=== PATIENT | female | born 1965 | race Caucasian/White ===

== ENCOUNTER 2018-01-05 12:26 | Emergency (ER) | payer OTHER ==
[~2018-01-05] VITALS: Ht 170.2 cm; Wt 64.4 kg
[~2018-01-05 12:26] MED LIST: NAPR500 PO; TOVI8TAB PO; VENL75 PO; ZOFR4TAB3 PO
[2018-01-05 12:28] VITALS: BP 153/81; PULSE 91; RESP 18; TEMP 97.4; O2SAT 100
[2018-01-05] MEDS ORDERED: TOVI8TAB PO (13:59)
[2018-01-05] MEDS ORDERED: VENL75TA PO (13:59)
[2018-01-05] MEDS ORDERED: SODIUM CHLOR 0.9% 1000 ML INJ 1,000 ML IV SCH (14:08)
[2018-01-05] MEDS ORDERED: FAMOTIDINE 20 MG/2 ML VIAL IV PUSH ONE (14:15)
[2018-01-05] MEDS ORDERED: ONDANSETRON HCL 4 MG/2 ML VIAL IVP ONE (14:15)
[2018-01-05] MEDS ORDERED: SODIUM CHLORIDE 0.9% FLUSH 10 ML FLUSH IV FLUSH PRN (14:15)
--- NOTE | 2018-01-05 14:21 | PD ---
HPI Chief Complaint: GI Complaint Time Seen by Provider: 14:01 Travel History International Travel<30 days: No Contact w/Intl Traveler<30days: No Traveled to known affect area: No History of Present Illness HPI 52-year-old female complains of nausea vomiting and abdominal bloating. Patient states the symptoms started 2 days ago. Patient states that she is has a lot of gas feeling the abdomen for the past 2 days. Patient denies any headache. Patient states that she has nasal congestion for the past several days. Patient denies any coughing. Patient denies any fever chills. Patient denies abdominal pain. Patient denies any dysuria or frequency. Patient denies any vaginal discharge or bleeding. Patient status post cholecystectomy in the past. PFSH Past Medical History Depression: Yes Diminished Hearing: No Genitourinary: Yes Immunizations Current: Yes Tetanus Vaccination: Unknown Influenza Vaccination: No ?: Not LMP: YEARS AGO Past Surgical History Cholecystectomy: Yes Social History Alcohol Use: Yes ([facility]) Tobacco Use: Yes (1/2) Substance Use: No Allergies-Medications (Allergen,Severity, Reaction): Coded Allergies: Sulfa (Sulfonamide Antibiotics) (Unverified Allergy, Severe, RASH, 01/05/18 ) codeine (Unverified Adverse Reaction, Severe, Nausea/Vomiting, 01/05/18) Reported Meds & Prescriptions Reported Meds & Active Scripts Active Reported Effexor (Venlafaxine HCl) 75 Mg Tab 75 Mg PO DAILY Toviaz ER (Fesoterodine Fumarate) 8 Mg Sherry 8 Mg PO DAILY Review of Systems General / Constitutional: No: Fever Eyes: No: Visual changes HENT: No: Headaches Cardiovascular: No: Chest Pain or Discomfort Respiratory: No: Shortness of Breath Gastrointestinal: Positive: Nausea, Vomiting, No: Abdominal Pain Genitourinary: No: Dysuria Musculoskeletal: No: Pain Skin: No Rash Neurologic: No: Weakness Psychiatric: No: Depression Endocrine: No: Polydipsia Hematologic/Lymphatic: No: Easy Bruising Physical Exam Narrative GENERAL: Well-nourished, well-developed patient. SKIN: Focused skin assessment warm/dry. HEAD: Normocephalic. EYES: No scleral icterus. No injection or drainage. NECK: Supple, trachea midline. No JVD or lymphadenopathy. CARDIOVASCULAR: Regular rate and rhythm without murmurs, gallops, or rubs. RESPIRATORY: Breath sounds equal bilaterally. No accessory muscle use. GASTROINTESTINAL: Abdomen soft, nondistended. Patient has mild diffuse tenderness over the abdomen. No rebound tenderness. No mass. MUSCULOSKELETAL: No cyanosis, or edema. BACK: Nontender without obvious deformity. No CVA tenderness. Neurologic exam normal. Data Data Last Documented VS Vital Signs Date Time Temp Pulse Resp B/P (MAP) Pulse Ox O2 Delivery O2 Flow Rate FiO2 01/05/18 15:56 88 20 143/72 (95) 98 Room Air 01/05/18 12:28 97.4 Orders Orders Complete Blood Count With Diff (01/05/18 14:08) Comprehensive Metabolic Panel (01/05/18 14:08) Lipase (01/05/18 14:08) Prothrombin Time / Inr (Pt) (01/05/18 14:08) Act Partial Throm Time (Ptt) (01/05/18 14:08) Urinalysis - C+S If Indicated (01/05/18 14:08) Ct Abd/Pel W Iv Contrast(Rout) (01/05/18 14:08) Iv Access Insert/Monitor (01/05/18 14:08) Ecg Monitoring (01/05/18 14:08) Oximetry (01/05/18 14:08) Ondansetron Inj (Zofran Inj) (01/05/18 14:15) Sodium Chlor 0.9% 1000 Ml Inj (Ns 1000 M (01/05/18 14:08) Sodium Chloride 0.9% Flush (Ns Flush) (01/05/18 14:15) Famotidine Inj (Pepcid Inj) (01/05/18 14:15) Metoclopramide Inj (Reglan Inj) (01/05/18 15:00) Diphenhydramine Inj (Benadryl Inj) (01/05/18 15:00) Iohexol 350 Inj (Omnipaque 350 Inj) (01/05/18 15:38) Labs Laboratory Tests Test 01/05/18 14:00 01/05/18 15:10 White Blood Count 13.6 TH/MM3 Red Blood Count 4.83 MIL/MM3 Hemoglobin 14.4 GM/DL Hematocrit 43.4 % Mean Corpuscular Volume 89.9 FL Mean Corpuscular Hemoglobin 29.7 PG Mean Corpuscular Hemoglobin Concent 33.1 % Red Cell Distribution Width 12.6 % Platelet Count 264 TH/MM3 Mean Platelet Volume 8.0 FL Neutrophils (%) (Auto) 80.6 % Lymphocytes (%) (Auto) 12.2 % Monocytes (%) (Auto) 6.5 % Eosinophils (%) (Auto) 0.3 % Basophils (%) (Auto) 0.4 % Neutrophils # (Auto) 10.9 TH/MM3 Lymphocytes # (Auto) 1.7 TH/MM3 Monocytes # (Auto) 0.9 TH/MM3 Eosinophils # (Auto) 0.0 TH/MM3 Basophils # (Auto) 0.1 TH/MM3 CBC Comment DIFF FINAL Differential Comment Prothrombin Time 10.8 SEC Prothromb Time International Ratio 1.1 RATIO Activated Partial Thromboplast Time 24.5 SEC Blood Urea Nitrogen 16 MG/DL Creatinine 0.71 MG/DL Random Glucose 105 MG/DL Total Protein 9.0 GM/DL Albumin 4.6 GM/DL Calcium Level 10.0 MG/DL Alkaline Phosphatase 90 U/L Aspartate Amino Transf (AST/SGOT) 15 U/L Alanine Aminotransferase (ALT/SGPT) 24 U/L Total Bilirubin 0.9 MG/DL Sodium Level 141 MEQ/L Potassium Level 3.6 MEQ/L Chloride Level 106 MEQ/L Carbon Dioxide Level 24.7 MEQ/L Anion Gap 10 MEQ/L Estimat Glomerular Filtration Rate 86 ML/MIN Lipase 107 U/L Urine Color YELLOW Urine Turbidity CLOUDY Urine pH 6.5 Urine Specific [place] 1.020 Urine Protein 100 mg/dL Urine Glucose (UA) NEG mg/dL Urine Ketones 80 OR GREATER mg/dL Urine Occult Blood TRACE Urine Nitrite NEG Urine Bilirubin NEG Urine Urobilinogen 0.2 MG/DL Urine Leukocyte Esterase TRACE Urine RBC 0-3 /hpf Urine WBC 0-2 /hpf Urine Squamous Epithelial Cells 0-5 /hpf Urine Bacteria RARE /hpf Urine Mucus MANY /lpf Microscopic Urinalysis Comment CULT NOT INDICATED MDM Medical Decision Making Medical Screen Exam Complete: Yes Emergency Medical Condition: Yes Interpretation(s) 1516 p.m. CBC WBC 13.6. 80 neutrophil. CMP within normal limits. [address] scan abdomen pelvis negative acute pathology. Differential Diagnosis Differential diagnosis including gastroenteritis, gastritis, PUD, pancreatitis, colitis, UTI, pyelonephritis, nephrolithiasis, bowel obstruction. Narrative Course 52-year-old female with nausea vomiting and abdominal cramping. Normal saline solution 1 L IV bolus. Zofran 4 mg IV. Pepcid 20 mg IV. Diagnosis Primary Impression: Gastroenteritis Patient Instructions: General Instructions Additional Instructions: Clear fluid today and advance diet as tolerated. Take medication as needed for nausea vomiting. Follow-up with personal physician. Return if persistent problem or worse. Med/Other Pt SpecificInfo: Prescription(s) given Scripts Promethazine (Phenergan) 25 Mg Tablet 25 MG PO Q6H Y for NAUSEA OR VOMITING, #10 TAB 0 Refills Prov: Osvaldo Hendrickson MD 01/05/18 Ondansetron Odt (Zofran Odt) 4 Mg Tab 4 MG SL Q6HR Y for Nausea/Vomiting, #10 TAB 0 Refills Prov: Osvaldo Hendrickson MD 01/05/18 Disposition: 01 DISCHARGE HOME Condition: Stable Osvaldo Hendrickson MD Jan 05, 2018 14:21
[2018-01-05 14:23] VITALS: O2SAT 98
[2018-01-05 14:24] VITALS: BP 141/87; PULSE 85; RESP 18; O2SAT 98
[2018-01-05 14:45] VITALS: BP 141/67; PULSE 87; RESP 18; O2SAT 98
[2018-01-05 14:47] LABS: AUTOMATED NEUTROPHIL # 10.9 TH/MM3 (1.8-7.7); BASOPHIL # 0.1 TH/MM3 (0-0.2); BASOPHIL % 0.4 % (0.0-2.0); EOSINOPHIL % 0.3 % (0.0-4.0); HEMATOCRIT 43.4 % (35.0-46.0); HEMOGLOBIN 14.4 GM/DL (11.6-15.3); LYMPH % 12.2 % (9.0-44.0); LYMPHOCYTE # 1.7 TH/MM3 (1.0-4.8); MEAN CELL VOLUME 89.9 FL (80.0-100.0); MEAN CORPUSCULAR HEMOGLOBIN 29.7 PG (27.0-34.0); MEAN CORPUSCULAR HGB CONC 33.1 % (32.0-36.0); MONO % 6.5 % (0.0-8.0); MONOCYTE # 0.9 TH/MM3 (0-0.9); NEUT % 80.6 % (16.0-70.0); PLATELET COUNT 264 TH/MM3 (150-450); RED BLOOD COUNT 4.83 MIL/MM3 (4.00-5.30); RED CELL DISTRIBUTION WIDTH 12.6 % (11.6-17.2); WHITE BLOOD COUNT 13.6 TH/MM3 (4.0-11.0)
[2018-01-05 15:00] LABS: CHLORIDE 106 MEQ/L (98-107); SODIUM (NA) 141 MEQ/L (136-145)
[2018-01-05] MEDS ORDERED: diphenhydrAMINE HCL 50 MG/ML VIAL IV PUSH ONE (15:00)
[2018-01-05] MEDS ORDERED: METOCLOPRAMIDE HCL 10 MG/2 ML VIAL IV PUSH ONE (15:00)
[2018-01-05 15:04] LABS: ALBUMIN 4.6 GM/DL (3.4-5.0); BICARBONATE 24.7 MEQ/L (21.0-32.0); BLOOD UREA NITROGEN 16 MG/DL (7-18); GLUCOSE,RANDOM 105 MG/DL (74-106); INTERNATIONAL NORMALIZED RATIO 1.1 RATIO; PROTHROMBIN TIME - PATIENT 10.8 SEC (9.8-11.6)
[2018-01-05 15:07] LABS: ALT (GPT) 24 U/L (10-53); AST (GOT) 15 U/L (15-37); CREATININE 0.71 MG/DL (0.50-1.00); GLOMERULAR FILTRATION RATE 86 ML/MIN (>89)
[2018-01-05 15:09] LABS: TOTAL BILIRUBIN ADULT 0.9 MG/DL (0.2-1.0)
[2018-01-05 15:10] LABS: ALKALINE PHOSPHATASE 90 U/L (45-117)
[2018-01-05] MEDS ORDERED: IOHEXOL 350 MG/ML 10 ML VIAL (for RAD DIAG) IVCONTRAST ONE (15:38)
[2018-01-05 15:40] LABS: BLOOD, URINE TRACE (NEG); GLUCOSE,URINE NEG (NEG); KETONE, URINE 80 OR GREATER mg/dL (NEG); NITRITE,URINE NEG (NEG); PH, URINE 6.5 (5.0-8.5); URINE COLOR YELLOW (YELLW/STRAW); URINE LEUKOCYTE ESTERASE TRACE (NEG)
[2018-01-05 15:44] LABS: BILIRUBIN, URINE NEG (NEG)
--- NOTE | 2018-01-05 15:47 | RADRPT ---
EXAM DATE/TIME: 01/05/2018 15:32 [facility] COMPARISON: No previous studies available for comparison. INDICATIONS : Nausea and vomiting with abdominal bloating since yesterday. IV CONTRAST: 90 cc Omnipaque 350 (iohexol) IV ORAL CONTRAST: No oral contrast ingested. RADIATION DOSE: 7.47 CTDIvol (mGy) MEDICAL HISTORY : None SURGICAL HISTORY : Cholecystectomy. ENCOUNTER: Initial ACUITY: 2 days PAIN SCALE: 6/10 LOCATION: pelvis abdomen TECHNIQUE: Volumetric scanning of the abdomen and pelvis was performed. Using automated exposure control and ad justment of the mA and/or kV according to patient size, radiation dose was kept as low as reasonably achievable to obtain optimal diagnostic quality images. DICOM format image data is available electro nically for review and comparison. FINDINGS: LOWER LUNGS: The visualized lower lungs are clear. LIVER: Homogeneous density without lesion. There is no dilation of the biliary tree. Status post cholecyste ctomy. There is mild hepatic steatosis. SPLEEN: Normal size without lesion. PANCREAS: Within normal limits. KIDNEYS: Normal in size and shape. There is no mass, stone or hydronephrosis. ADRENAL GLANDS: Within normal limits. VASCULAR: There is no aortic aneurysm. BOWEL/MESENTERY: No oral contrast was given limiting the sensitivity. The stomach, small bowel, and colon demonstrate no acute abnormality. There is no free intraperitoneal air or fluid. ABDOMINAL WALL: Within normal limits. RETROPERITONEUM: There is no lymphadenopathy. BLADDER: No wall thickening or mass. REPRODUCTIVE: Within normal limits. INGUINAL: There is no lymphadenopathy or hernia. MUSCULOSKELETAL: Within normal limits for patient age. CONCLUSION: 1. Unremarkable bowel gas pattern present. The study was performed without oral contrast. 2. Mild hepatic steatosis. 3. Status post cholecystectomy. Yordy Pacheco MD on January 05, 2018 at 15:42 Board Certified Radiologist. This report was verified electronically.
[2018-01-05 15:56] VITALS: BP 143/72; PULSE 88; RESP 20; O2SAT 98
[2018-01-05 15:56] LABS: BACTERIA, URINE RARE /hpf; MUCUS URINE MANY /lpf (OCC); RBC, URINE 0-3 /hpf (0-3); SQUAMOUS EPITHELIAL CELL URINE 0-5 /hpf (0-5); WBC, URINE 0-2 /hpf (0-5)
[2018-01-05] MEDS ORDERED: ZOFR4TAB3 SL (16:02)
[2018-01-05] MEDS ORDERED: PROM25TA10 PO (16:02)
== END 2018-01-05 16:07 | disposition home or self-care (01) ==
LOC: PHED 12:26
DX: K52.9 Noninfective gastroenteritis and colitis, unspecified (principal); F32.9 Major depressive disorder, single episode, unspecified; F17.200 Nicotine dependence, unspecified, uncomplicated
CPT/HCPCS: 74177; 80053; 81001; 83690; 85025; 85610; 85730; 96361; 96374; 96375; 99285; J1200; J2405; J2765; J7030; Q9967

== ENCOUNTER 2018-01-09 15:20 | Emergency (ER) | payer OTHER ==
[~2018-01-09] VITALS: Ht 170.2 cm; Wt 66.0 kg
[~2018-01-09 15:20] MED LIST changes: -NAPR500 PO; +PROM25TA10 PO; -VENL75 PO; +VENL75TA PO; -ZOFR4TAB3 PO; +ZOFR4TAB3 SL
[2018-01-09 15:24] VITALS: BP 124/82; PULSE 86; RESP 16; TEMP 97.3; O2SAT 100
[2018-01-09] MEDS ORDERED: SODIUM CHLOR 0.9% 1000 ML INJ 1,000 ML IV ONE (16:25)
[2018-01-09 16:28] VITALS: O2SAT 98
[2018-01-09] MEDS ORDERED: ONDANSETRON HCL 4 MG/2 ML VIAL IV PUSH ONE (16:30)
[2018-01-09] MEDS ORDERED: MECLIZINE HCL 25 MG TAB PO ONE (16:30)
[2018-01-09] MEDS ORDERED: SODIUM CHLORIDE 0.9% FLUSH 10 ML FLUSH IVF PRN (16:30)
[2018-01-09 16:39] LABS: BASOPHIL # 0.1 TH/MM3 (0-0.2); EOSINOPHIL # 0.3 TH/MM3 (0-0.4); EOSINOPHIL % 3.2 % (0.0-4.0); HEMATOCRIT 40.4 % (35.0-46.0); HEMOGLOBIN 13.6 GM/DL (11.6-15.3); LYMPH % 26.8 % (9.0-44.0); LYMPHOCYTE # 2.2 TH/MM3 (1.0-4.8); MEAN CELL VOLUME 91.2 FL (80.0-100.0); MEAN CORPUSCULAR HEMOGLOBIN 30.6 PG (27.0-34.0); MEAN CORPUSCULAR HGB CONC 33.6 % (32.0-36.0); MEAN PLATELET VOLUME 7.5 FL (7.0-11.0); MONO % 7.6 % (0.0-8.0); MONOCYTE # 0.6 TH/MM3 (0-0.9); NEUT % 61.4 % (16.0-70.0); PLATELET COUNT 273 TH/MM3 (150-450); RED BLOOD COUNT 4.43 MIL/MM3 (4.00-5.30); WHITE BLOOD COUNT 8.2 TH/MM3 (4.0-11.0)
--- NOTE | 2018-01-09 16:47 | PD ---
HPI Chief Complaint: Dizziness Time Seen by Provider: 16:17 Travel History International Travel<30 days: No Contact w/Intl Traveler<30days: No Traveled to known affect area: No History of Present Illness HPI 52-year-old female complains of a stated dizziness. She was seen here about 4 days prior and diagnosed with gastroenteritis. She reports vomiting frequently since. No diarrhea. No chest pain or shortness of breath. Patient describes the dizziness is difficult to clarify in terms of lightheadedness versus vertiginous. No complaints of tinnitus, otalgia or otorrhea. Following admission last time the patient was prescribed Zofran and Phenergan. The patient filled the Zofran prescription but not the Phenergan prescription. No diarrhea. No similar prior episodes. PFSH Past Medical History Depression: Yes Diminished Hearing: No Genitourinary: Yes Immunizations Current: Yes ?: Not Past Surgical History Cholecystectomy: Yes Social History Alcohol Use: Yes (OCC) Tobacco Use: Yes (1/2) Substance Use: No Allergies-Medications (Allergen,Severity, Reaction): Coded Allergies: Sulfa (Sulfonamide Antibiotics) (Unverified Allergy, Severe, RASH, 01/09/18 ) codeine (Unverified Adverse Reaction, Severe, Nausea/Vomiting, 01/09/18) Reported Meds & Prescriptions Reported Meds & Active Scripts Active Meclizine (Meclizine HCl) 25 Mg Tab 25 Mg PO TID PRN 30 Days Ativan (Lorazepam) 0.5 Mg Tab 0.5 Mg PO Q8H PRN Phenergan (Promethazine HCl) 25 Mg Tablet 25 Mg PO Q6H PRN Zofran Odt (Ondansetron Odt) 4 Mg Tab 4 Mg SL Q6HR PRN Reported Effexor (Venlafaxine HCl) 75 Mg Tab 75 Mg PO DAILY Toviaz ER (Fesoterodine Fumarate) 8 Mg Sherry 8 Mg PO DAILY Review of Systems Except as stated in HPI: all other systems reviewed are Neg General / Constitutional: No: Fever Physical Exam Narrative GENERAL: Well-nourished well-developed 52-year-old female mildly anxious mildly distressed Vital Signs Date Time Temp Pulse Resp B/P (MAP) Pulse Ox O2 Delivery O2 Flow Rate FiO2 01/09/18 16:28 98 Room Air 01/09/18 15:24 97.3 86 16 124/82 (96) 100 SKIN: Warm and dry. HEAD: Atraumatic. Normocephalic. EYES: Pupils equal and round. No scleral icterus. No injection or drainage. ENT: No nasal bleeding or discharge. Mucous membranes pink and moist. NECK: Trachea midline. No JVD. CARDIOVASCULAR: Regular rate and rhythm. RESPIRATORY: No accessory muscle use. Clear to auscultation. Breath sounds equal bilaterally. GASTROINTESTINAL: Abdomen soft, non-tender, nondistended. Hepatic and splenic margins not palpable. MUSCULOSKELETAL: Extremities without clubbing, cyanosis, or edema. No obvious deformities. NEUROLOGICAL: Awake and alert. No obvious cranial nerve deficits. Motor grossly within normal limits. Five out of 5 muscle strength in the arms and legs. Normal speech. PSYCHIATRIC: Appropriate mood and affect; insight and judgment normal. Data Data Last Documented VS Vital Signs Date Time Temp Pulse Resp B/P (MAP) Pulse Ox O2 Delivery O2 Flow Rate FiO2 01/09/18 19:24 81 16 127/82 (97) 100 01/09/18 18:16 Room Air 01/09/18 15:24 97.3 Orders Orders Electrocardiogram (01/09/18 16:25) Basic Metabolic Panel (Bmp) (01/09/18 16:25) Complete Blood Count With Diff (01/09/18 16:25) Magnesium (Mg) (01/09/18 16:25) Ckmb (Isoenzyme) Profile (01/09/18 16:25) Troponin I (01/09/18 16:25) Urinalysis - C+S If Indicated (01/09/18 16:25) Chest, Single Ap (01/09/18 16:25) Ct Brain W/O Iv Contrast(Rout) (01/09/18 16:25) Blood Glucose (01/09/18 16:25) Ecg Monitoring (01/09/18 16:25) Iv Access Insert/Monitor (01/09/18 16:25) Oximetry (01/09/18 16:25) Meclizine (Antivert) (01/09/18 16:30) Sodium Chloride 0.9% Flush (Ns Flush) (01/09/18 16:30) Sodium Chlor 0.9% 1000 Ml Inj (Ns 1000 M (01/09/18 16:25) Ondansetron Inj (Zofran Inj) (01/09/18 16:30) Lorazepam Inj (Ativan Inj) (01/09/18 18:15) Ed Discharge Order (01/09/18 18:36) Labs Laboratory Tests Test 01/09/18 16:30 01/09/18 17:39 White Blood Count 8.2 TH/MM3 Red Blood Count 4.43 MIL/MM3 Hemoglobin 13.6 GM/DL Hematocrit 40.4 % Mean Corpuscular Volume 91.2 FL Mean Corpuscular Hemoglobin 30.6 PG Mean Corpuscular Hemoglobin Concent 33.6 % Red Cell Distribution Width 13.0 % Platelet Count 273 TH/MM3 Mean Platelet Volume 7.5 FL Neutrophils (%) (Auto) 61.4 % Lymphocytes (%) (Auto) 26.8 % Monocytes (%) (Auto) 7.6 % Eosinophils (%) (Auto) 3.2 % Basophils (%) (Auto) 1.0 % Neutrophils # (Auto) 5.0 TH/MM3 Lymphocytes # (Auto) 2.2 TH/MM3 Monocytes # (Auto) 0.6 TH/MM3 Eosinophils # (Auto) 0.3 TH/MM3 Basophils # (Auto) 0.1 TH/MM3 CBC Comment DIFF FINAL Differential Comment Blood Urea Nitrogen 14 MG/DL Creatinine 0.65 MG/DL Random Glucose 65 MG/DL Calcium Level 8.8 MG/DL Magnesium Level 2.2 MG/DL Sodium Level 141 MEQ/L Potassium Level 4.2 MEQ/L Chloride Level 107 MEQ/L Carbon Dioxide Level 29.0 MEQ/L Anion Gap 5 MEQ/L Estimat Glomerular Filtration Rate 95 ML/MIN Total Creatine Kinase 46 U/L Troponin I LESS THAN 0.02 NG/ML Urine Collection Type CLEAN CATCH Urine Color YELLOW Urine Turbidity CLEAR Urine pH 5.5 Urine Specific [place] 1.025 Urine Protein NEG mg/dL Urine Glucose (UA) NEG mg/dL Urine Ketones TRACE mg/dL Urine Occult Blood NEG Urine Nitrite NEG Urine Bilirubin NEG Urine Urobilinogen 0.2 MG/DL Urine Leukocyte Esterase NEG Urine RBC 0-3 /hpf Urine WBC 3-5 /hpf Urine Squamous Epithelial Cells 6-8 /hpf Microscopic Urinalysis Comment CULT NOT INDICATED Urine Collection Time 17:39 [facility] Medical Decision Making Medical Screen Exam Complete: Yes Emergency Medical Condition: Yes Medical Record Reviewed: Yes Differential Diagnosis UTI, arrhythmia, metabolic disarray, gastroenteritis, gastroparesis, renal failure Narrative Course CBC & BMP Diagram 01/09/18 16:30 Calcium Level 8.8, Magnesium Level 2.[address] 01/09/18 1625 Signed Impressions: Service Date/Time: Tuesday, January 09, 2018 16:47 - CONCLUSION: Negative noncontrast CT. Yordy Pacheco MD Chest X-Ray 01/09/18 1625 Signed Impressions: Service Date/Time: Tuesday, January 09, 2018 17:04 - CONCLUSION: No acute disease. Yordy Pacheco MD EKG shows a sinus rhythm with a rate of 72 no preexcitation The patient is resting comfortably and feels better, is alert and in no distress. The patients results and examination findings were discussed. The repeat examination is unremarkable and benign. The history, exam, diagnostic testing, and current condition do not suggest any significant pathology to warrant further testing, continued ED treatment, admission, or surgical evaluation at this point. The vital signs have been stable. The patient does not have uncontrollable pain, intractable vomiting, or other significant symptoms. The patient's condition is stable and appropriate for discharge. The patient will pursue further outpatient evaluation with a primary care physician or other designated or consulting physician as indicated in the discharge instructions. The patient expressed understanding and was agreeable with this plan. Diagnosis Primary Impression: Nausea & vomiting Qualified Codes: R11.2 - Nausea with vomiting, unspecified Additional Impression: Dizziness Referrals: Ravindra De Paz MD call for appointment ENT Physician Primary Care Physician 2 days Med/Other Pt SpecificInfo: Prescription(s) given Scripts Meclizine (Meclizine) 25 Mg Tab 25 MG PO TID Y for VERTIGO for 30 Days, TAB 0 Refills Prov: Kaz Urias MD 01/09/18 Lorazepam (Ativan) 0.5 Mg Tab 0.5 MG PO Q8H Y for DIZZINESS, #10 TAB 0 Refills Prov: Kaz Urias MD 01/09/18 Disposition: 01 DISCHARGE HOME Condition: Stable Kaz Urias MD Jan 09, 2018 16:47
[2018-01-09 16:50] LABS: CHLORIDE 107 MEQ/L (98-107); SODIUM (NA) 141 MEQ/L (136-145)
[2018-01-09 16:53] LABS: CALCIUM 8.8 MG/DL (8.5-10.1)
[2018-01-09 16:54] LABS: BLOOD UREA NITROGEN 14 MG/DL (7-18); GLUCOSE,RANDOM 65 MG/DL (74-106); MAGNESIUM 2.2 MG/DL (1.5-2.5)
[2018-01-09 16:57] LABS: CREATININE 0.65 MG/DL (0.50-1.00); GLOMERULAR FILTRATION RATE 95 ML/MIN (>89)
[2018-01-09 17:02] LABS: TROPONIN I LESS THAN 0.02 NG/ML (0.02-0.05)
--- NOTE | 2018-01-09 17:06 | RADRPT ---
EXAM DATE/TIME: 01/09/2018 16:47 [facility] COMPARISON: No previous studies available for comparison. INDICATIONS : Dizziness, with nausea for a week. RADIATION DOSE: 58.44 CTDIvol (mGy) MEDICAL HISTORY : None SURGICAL HISTORY : Cholecystectomy. ENCOUNTER: Initial ACUITY: 1 week PAIN SCALE: 0/10 LOCATION: cranial TECHNIQUE: Multiple contiguous axial images were obtained of the head. Using automated exposure control and adj ustment of the mA and/or kV according to patient size, radiation dose was kept as low as reasonably a chievable to obtain optimal diagnostic quality images. DICOM format image data is available electro nically for review and comparison. FINDINGS: CEREBRUM: The ventricles are normal for age. No evidence of midline shift, mass lesion, hemorrhage or acute in farction. No extra-axial fluid collections are seen. POSTERIOR FOSSA: The cerebellum and brainstem are intact. The 4th ventricle is midline. The cerebellopontine angle i s unremarkable. EXTRACRANIAL: The visualized portion of the orbits is intact. SKULL: The calvaria is intact. No evidence of skull fracture. CONCLUSION: Negative noncontrast CT. Yordy Pacheco MD on January 09, 2018 at 17:03 Board Certified Radiologist. This report was verified electronically.
[2018-01-09 17:15] VITALS: BP 125/62; PULSE 72; RESP 18; O2SAT 97
--- NOTE | 2018-01-09 17:23 | RADRPT ---
EXAM DATE/TIME: 01/09/2018 17:04 [facility] COMPARISON: No previous studies available for comparison. INDICATIONS : Palpitations. MEDICAL HISTORY : None. SURGICAL HISTORY : Cholecystectomy. ENCOUNTER: Initial ACUITY: 1 day PAIN SCORE: 2/10 LOCATION: Bilateral chest FINDINGS: A single view of the chest demonstrates the lungs to be symmetrically aerated without evidence of mas s, infiltrate or effusion. The cardiomediastinal contours are unremarkable. Osseous structures are intact. CONCLUSION: No acute disease. Yordy Pacheco MD on January 09, 2018 at 17:21 Board Certified Radiologist. This report was verified electronically.
[2018-01-09 17:43] LABS: BILIRUBIN, URINE NEG (NEG); BLOOD, URINE NEG (NEG); GLUCOSE,URINE NEG (NEG); KETONE, URINE TRACE mg/dL (NEG); NITRITE,URINE NEG (NEG); PH, URINE 5.5 (5.0-8.5); URINE COLOR YELLOW (YELLW/STRAW); URINE LEUKOCYTE ESTERASE NEG (NEG)
[2018-01-09 17:50] LABS: RBC, URINE 0-3 /hpf (0-3)
[2018-01-09] MEDS ORDERED: LORazepam 2 MG/ML VIAL IV PUSH ONE (18:15)
[2018-01-09 18:16] VITALS: BP 128/69; PULSE 81; RESP 18; O2SAT 100
[2018-01-09] MEDS ORDERED: LORA-392 PO (18:26)
[2018-01-09] MEDS ORDERED: MECL-62 PO (19:01)
[2018-01-09 19:24] VITALS: BP 127/82
--- NOTE | 2018-01-10 13:57 | EKG ---
Date Performed: 01/09/2018 Time Performed: 16:42:36 PTAGE: 52 years EKG: Sinus rhythm NORMAL ECG NO PREVIOUS TRACING DOCTOR: Garrett Be Interpretating Date/Time 01/10/2018 13:56:51
== END 2018-01-09 19:37 | disposition home or self-care (01) ==
LOC: PHED 15:20
DX: R11.2 Nausea with vomiting, unspecified (principal); R42 Dizziness and giddiness; F32.9 Major depressive disorder, single episode, unspecified; F17.200 Nicotine dependence, unspecified, uncomplicated; Z79.899 Other long term (current) drug therapy; Z88.2 Allergy status to sulfonamides; Z88.5 Allergy status to narcotic agent
CPT/HCPCS: 70450; 71045; 80048; 81001; 82550; 83735; 84484; 85025; 93005; 96361; 96374; 96375; 99285; J2060; J2405; J7030